=== PATIENT | female | born 1970 ===

== ENCOUNTER 2018-11-03 15:15 | Outpatient (CLI) | payer OTHER | END 2018-11-03 15:16 | disposition home or self-care (01) | LOC: C.MAMMO 15:15 | DX: Z12.31 Encounter for screening mammogram for malignant neoplasm of breast (principal) ==

== ENCOUNTER 2018-11-21 12:49 | Outpatient (CLI) | payer OTHER | END 2018-11-21 12:50 | disposition home or self-care (01) | LOC: C.USIC 12:50 ==

== ENCOUNTER 2018-12-27 09:01 | Outpatient (CLI) | payer OTHER | END 2018-12-27 11:45 | disposition home or self-care (01) | LOC: C.USH 09:01 ==